=== PATIENT | male | born 1970 | race Caucasian/White ===

== ENCOUNTER → 2018-12-12 | Outpatient (CLI) | payer BC ==
--- NOTE | 2018-12-12 11:54 | XR ---
EXAMINATION TYPE: XR shoulder complete RT DATE OF EXAM: 12/12/2018 CLINICAL HISTORY: pain TECHNIQUE: Three views of the right shoulder are obtained. COMPARISON: None FINDINGS: There is no acute fracture/dislocation evident. The acromioclavicular and glenohumeral bobby int spaces appear mildly narrowed. The visualized ribs are intact and unremarkable. IMPRESSION: 1. There is no acute fracture or dislocation. ICD 10 NO FRACTURE, INITIAL EVALUATION
== END ==
LOC: RADXRMAIN 11:04
PROVIDERS: ATTEND Physician Assistant
DX: M25.511 Pain in right shoulder (principal)

== ENCOUNTER → 2019-01-21 | Outpatient (CLI) | payer BC ==
--- NOTE | 2019-01-21 16:19 | MR ---
EXAMINATION TYPE: MR shoulder RT wo con DATE OF EXAM: 01/21/2019 COMPARISON: 12/12/2018 plain film HISTORY: Rt shoulder pain, tear or rupture TECHNIQUE: Multiplanar, multisequence imaging of the right shoulder is performed without contrast. FINDINGS: Rotator Cuff: Small amount of subacromial bursal fluid is present. Perforation may be present near th e distal supraspinatus insertion. Rotator cuff tendons otherwise appear intact. No tendon or muscle r etraction is evident. Findings could be related to moderate tendinosis of the supraspinatus tendon. Acromioclavicular Joint: Acromioclavicular joint hypertrophy is present with downward spurring which can contribute to impingement syndrome. Glenohumeral Joint: Small joint effusion is present. There is thinning of the glenohumeral articular surfaces. Labrum: The labrum appears grossly intact given limitation of non-arthrogram study. Biceps Tendon: The long head of biceps is in normal location within bicipital groove. Fluid surrounds the long head of the biceps tendon compatible with moderate tendinosis. Bone marrow signal: No focal abnormal marrow signal is appreciated. Other: No additional significant abnormality is appreciated. IMPRESSION: 1. Moderate tendinosis of the supraspinatus tendon and long head of the biceps tendon. 2. A small perforation is not excluded at the distal supraspinatus tendon.
== END | disposition home or self-care (01) ==
LOC: RADMRIMAIN 14:45
PROVIDERS: ATTEND Family Medicine
DX: M67.813 Other specified disorders of tendon, right shoulder (principal)

== ENCOUNTER 2019-03-03 06:18 | Day surgery (SDC) | payer BC ==
[2019-02-26 11:08] VITALS: BMI 29.8
--- NOTE | 2019-03-02 09:06 | HP ---
HISTORY AND PHYSICAL CHIEF COMPLAINT: Right shoulder pain. 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 It is worsening. He is having pain with overhead use and at night. He has tried therapy and medications with only partial temporary relief. He notes it does limit his normal function and activities. PAST MEDICAL HISTORY: Significant for inflammatory arthritis, psoriasis, previous CVA, hypertension, and noninsulin dependent diabetes. PAST SURGICAL HISTORY: Negative. CURRENT MEDICATIONS: 1. Aspirin. 2. Atorvastatin. 3. Lisinopril. 4. Xigduo. He has allergies to METHOTREXATE and HYDROXYCHLOROQUINE SULFATE. FAMILY HISTORY: Significant for heart disease. SOCIAL HISTORY: Significant for previous tobacco use; however, he quit in 2001. REVIEW OF SYSTEMS: A 16-point review of systems otherwise reviewed and is noncontributory. PHYSICAL EXAMINATION: The patient is approximately 6 foot 1, 229 pounds of mesomorphic habitus. HEENT exam is nonfocal. Neck is supple. He has tenderness about the right shoulder, anterior subacromial space. He has moderate subacromial crepitus. Active range of motion, forward elevation 100 degrees, external rotation with the arm side 50 degrees, internal rotation to L4. Passively, I am able to forward elevate him to 110 degrees. Motor strength is 4/5 for external rotation with the arm at side, 4-/5 for abduction. Impingement test, Neer test, and Speed test are positive. His distal neurovascular exam appears intact in the right upper extremity. MRI report right shoulder shows evidence of a questionable small tear of the supraspinatus along with biceps tendinosis and acromioclavicular joint arthritis. IMPRESSION: 1. Right shoulder adhesive capsulitis. 2. Right shoulder impingement with possible rotator cuff tear and biceps tendinosis. 3. Right acromioclavicular joint arthritis. RECOMMENDATIONS: I talked to the patient at length regarding his condition along with treatment options. At this point, he is quite symptomatic despite conservative measures. After a thorough discussion, he opts to proceed with surgery. We will plan to proceed with right shoulder arthroscopy with possible subacromial decompression, rotator cuff debridement versus repair, possible distal clavicular resection, and possible manipulation under anesthesia. We will likely perform that as an outpatient procedure. Risks and benefits were discussed at length in layman's terms. MMODL / IJN: [id number] /
[~2019-03-03 06:18] MED LIST: DEXAMETHASONE SOD PHOSPHATE 10 MG/ML 1 ML VIAL IV ONE; HYDROmorphone 0.5 MG/0.5 ML SYRINGE IVP PRN; LACTATED RINGERS 1,000 ML IV SCH; MIDAZOLAM 2 MG/2 ML VIAL IV PRN; ONDANSETRON 4 MG/2 ML VIAL IVP ONE; SCOPOLAMINE 1.5MG/72HR PATCH TRANSDERM ONE; ceFAZolin IN SWFI 2 GM/20 ML SYRINGE IVP ONE
[2019-03-03 06:43] LABS: Glucose,Whole Blood 136 mg/dL (75-99)
[2019-03-03] MEDS ORDERED: MIDAZOLAM (PF) 2 MG/2 ML VIAL IVP ONE (07:04)
[2019-03-03] MEDS ORDERED: SUCCINYLCHOLINE CHLORIDE 100 MG/5 ML SYR IV ONE (08:22)
[2019-03-03] MEDS ORDERED: MIDAZOLAM 2 MG/2 ML VIAL ONE (08:22)
[2019-03-03] MEDS ORDERED: LIDOCAINE 2%-EPI 1:100,000 20 ML VIAL ONE (08:22)
[2019-03-03] MEDS ORDERED: fentaNYL (PF) 50 MCG/ML 2 ML AMP ONE (08:22)
[2019-03-03] MEDS ORDERED: PROPOFOL 10 MG/ML 20 ML VIAL IV ONE (08:22)
[2019-03-03] MEDS ORDERED: LIDOCAINE 1% INJ 10MG/ML (20 ML MDV) ONE (08:22)
[2019-03-03] MEDS ORDERED: ROPIVACAINE 5 MG/ML 30 ML VIAL ONE (08:22)
[2019-03-03] MEDS ORDERED: LACTATED RINGERS 1,000 ML IV ONE (09:57)
[2019-03-03 10:05] VITALS: TEMP 99.6
--- NOTE | 2019-03-03 10:14 | P.OP ---
Date of Procedure: 03/03/19 Preoperative Diagnosis: Right shoulder adhesive capsulitis/rotator cuff tear/acromioclavicular synovitis Postoperative Diagnosis: Same Procedure(s) Performed: Right shoulder arthroscopic subacromial decompression/rotator cuff repair/distal clavicular resection/manipulation under anesthesia Implants: Arthrex 5.5 mm swivel lock anchor 1 Anesthesia: viktor WALLACE Surgeon: Ricki Enamorado Time Cycle Operator #1: Waqas Nunez Estimated Blood Loss (ml): 10 Pathology: none sent Condition: stable Disposition: PACU Indications for Procedure: The patient's a 48-year-old [id number]-uwetnsjo gentleman who presents with progressive right shoulder pain and stiffness despite conservative measures. A discussion of the risks and benefits of operative intervention versus continued conservative measures was made with the patient. He opted to proceed with surgery. Operative risks to include infection, neurovascular injury, development of blood clots, possible incomplete resolution of symptoms, possible worsening symptoms and need for subsequent procedures was discussed. Informed consent was obtained. Operative Findings: As below Description of Procedure: The patient was brought to the operating room, and after induction of general anesthesia was placed in a beachchair position. A preoperative interscalene block was placed for postoperative analgesia. I examined the right shoulder. There was significant adhesions. Gentle manipulation was performed first with the arm at the side obtaining 70 of external rotation. Moderate adhesions were encountered. Then I obtained full 170 forward elevation. Again there were moderate adhesions. The right upper extremity was prepped and draped in normal fashion. The bony outlines the acromion, distal clavicle, and coracoid process were outlined with a skin marker. The glenohumeral joint was inflated with 50 mL of saline utilizing a spinal needle from posterior approach. A posterior portal was made through a 5 mm skin incision 1 cm medial and inferior to the posterior lateral border time. A blunt trocar was used to easily into the joint. Diagnostic arthroscopy was performed. An anterior portal was made just lateral to the coracoid process entering the joint above the subscapularis tendon. The subscapularis tendon appeared to be intact. Anterior labrum was intact. The inferior recess was inspected. The posterior labrum was intact. The biceps and its anchor were intact. Marked synovitis involving the rotator interval was noted and was debrided with a motorized shaver. On inspection the rotator cuff, a 1 cm tear involving the anterior supraspinatus was noted. A lateral portal was made 2 centimeters inferior to the anterior lateral border of the acromion. The soft tissue on the undersurface of the acromion was debrided with a motorized shaver and electrocautery clearly defining the anterior medial and lateral borders as well as the distal clavicle. An anterior inferior acromioplasty was performed with a motorized jovani starting anterolateral, then extending this posteriorly, then extending this medially. I converted to a flat acromion and this was verified in the posterior and lateral viewing portals. The distal clavicle was exposed and the distal 5 mm resected with a motorized jovani. The rotator cuff tear was identified and easily mobilized back to the greater tuberosity. The greater tuberosity was lightly decorticating with a shaver down to a bleeding bony surface. A #2 fiber tape was passed the rotator cuff with a scorpion suture passer. A lateral anchor was then placed utilizing the appropriate starting awl. Good purchase was obtained. Final arthroscopic view showed adequate compression at the footprint. The arthroscope was then removed. The portals were closed with simple 3-0 nylon sutures. A sterile dressing was applied in addition to an abductor brace. The patient was then awoken from general anesthesia and transferred to recovery room in good condition. Blood loss was estimated at 10 mL. No complications were incurred. Sponge and needle counts were correct in the case. Philippe ROMERO assisted and the major components of the case to include arm positioning, anchor placement, and rotator cuff repair.
[2019-03-03 10:16] LABS: Glucose,Whole Blood 169 mg/dL (75-99)
[2019-03-03 10:20] VITALS: RESP 16
[2019-03-03 11:04] VITALS: BP 131/82; PULSE 86
--- NOTE | 2019-03-03 11:40 | P.ANPRN ---
Procedure Note - Anesthesia - Nerve Block Performed Right Interscalene Single Time Out Performed: Yes Date of Procedure: 03/03/19 Procedure Start Time: 07:04 Procedure Stop Time: 07:10 Location of Patient Procedure: PreOp Indication: Acute Post-Operative Pain, Dx/Pain Location (Right Shoulder Pain), Requested by physician (Fei) Sedation Type: Sedate with meaningful contact maintained Preparation: Sterile Prep Position: Supine Catheter: None Needle Types: On-Q Needle Gauge: 21 Technique: Ultrasound Injectate: 0.5% Ropivacaine (see comment for volume) (20ml) Blood Aspirated: No Pain Paresthesia on Injection Noted: No Resistance on Injection: Normal Events: Uneventful and Well Tolerated
== END 2019-03-03 11:30 | disposition home or self-care (01) ==
LOC: OR 06:18
PROVIDERS: ATTEND Orthopaedic Surgery
DX: M75.101 Unspecified rotator cuff tear or rupture of right shoulder, not specified as traumatic (principal); M75.01 Adhesive capsulitis of right shoulder; M65.811 Other synovitis and tenosynovitis, right shoulder; M75.41 Impingement syndrome of right shoulder; M19.011 Primary osteoarthritis, right shoulder; I10 Essential (primary) hypertension; E78.5 Hyperlipidemia, unspecified; E11.9 Type 2 diabetes mellitus without complications; Z86.73 Personal history of transient ischemic attack (TIA), and cerebral infarction without residual deficits; M06.9 Rheumatoid arthritis, unspecified; Z79.84 Long term (current) use of oral hypoglycemic drugs; Z79.82 Long term (current) use of aspirin; Z79.899 Other long term (current) drug therapy; Z88.8 Allergy status to other drugs, medicaments and biological substances; Z87.891 Personal history of nicotine dependence
CPT/HCPCS: 64415; 29826; 29827; 29824; C1713 ×2; J2250 ×2; J1100; J2405; J2001; J3010; J2795; J0330; J2704; J0690

== ENCOUNTER → 2022-07-28 | Outpatient (CLI) | payer BC ==
[2022-07-28 16:20] LABS: Basophils # (A) 0.07 X 10*3/uL (0.00-0.10); Eosinophils # (A) 0.23 X 10*3/uL (0.04-0.35); Eosinophils % (A) 3.3 %; HGB 15.5 g/dL (13.0-17.0); Immature Grans, Automated 0.3 %; Lymphocytes # (A) 1.77 X 10*3/uL (0.90-5.00); MCH 28.2 pg (27.0-32.0); MCHC 32.3 g/dL (32.0-37.0); MCV 87.4 fL (80.0-97.0); Monocytes # (A) 0.56 X 10*3/uL (0.20-1.00); Monocytes % (A) 7.9 %; NRBC Per 100 WBC 0 /100 WBCS (0.0-0.0); Neutrophils # (A) 4.42 X 10*3/uL (1.80-7.70); Neutrophils % (A) 62.5 %; Platelet Count 250 X 10*3/uL (140-440); RBC 5.49 X 10*6/uL (4.40-5.60); RDW 13.1 % (11.5-14.5); WBC 7.07 X 10*3/uL (4.50-10.00)
[2022-07-28 18:35] LABS: ALT 16 U/L (10-49); AST 21 U/L (14-35); Albumin 4.6 g/dL (3.8-4.9); Albumin/Globulin Ratio 1.69 (1.60-3.17); Alkaline Phosphatase 57 U/L (41-126); BUN/Creat Ratio 13.03 Ratio (12.00-20.00); Blood Urea Nitrogen 14.2 mg/dL (9.0-27.0); Carbon Dioxide 28.3 mmol/L (20.0-27.5); Chloride 100 mmol/L (96-109); Chol/HDL Ratio 4.59 Ratio; Globulin 2.7 g/dL (1.6-3.3); Glucose 133 mg/dL (70-110); LDL Cholesterol,Calculated 96.1 mg/dL (0.0-131.0); Non-African American GFR(CKD) 77.6 (60.0-200.0); Potassium 4.5 mmol/L (3.5-5.5); Sodium 137 mmol/L (135-145); Total Protein 7.4 g/dL (6.2-8.2)
== END | disposition home or self-care (01) ==
LOC: LABWHC1 11:45
PROVIDERS: ATTEND Family Medicine
DX: Z12.5 Encounter for screening for malignant neoplasm of prostate (principal); E11.9 Type 2 diabetes mellitus without complications
CPT/HCPCS: 36415; 80053; 80061; 84153; 84439; 84443; 85025